=== PATIENT | female | born 1985 | race African-American/Black ===

== ENCOUNTER 2017-11-24 00:35 | Emergency (ER) | payer MEDICAID ==
[~2017-11-24] VITALS: Ht 170.2 cm; Wt 158.8 kg
[2017-11-24 03:00] VITALS: BP 134/86
[2017-11-24] MEDS ORDERED: ONDANSETRON HCL 4 MG/2 ML VIAL IV ONE (03:30)
[2017-11-24] MEDS ORDERED: SODIUM CHLORIDE 0.9% 4,750 ML IV ONE (03:30)
[2017-11-24] MEDS ORDERED: DEXAMETHASONE INJECTION 10 MG in D5W 5% 50 ML IV ONE (03:30)
[2017-11-24] MEDS ORDERED: ceFAZolin 1GM/50ML 50 ML IV ONE (03:30)
[2017-11-24] MEDS ORDERED: DEXAMETHASONE SOD PHOS 10MG/1ML VIAL INJ ONE (03:53)
[2017-11-24] MEDS ORDERED: SODIUM CHLORIDE 0.9% 1,000 ML IV ONE (04:00)
[2017-11-24] MEDS ORDERED: DEXAMETHASONE SOD PHOS 10MG/1ML VIAL INJ IV ONE (04:00)
== END 2017-11-24 05:44 | disposition home or self-care (01) ==
LOC: ER 00:35
DX: J03.90 Acute tonsillitis, unspecified (principal); E86.0 Dehydration
CPT/HCPCS: 96365; 96375; 99284; J0690; J1100; J2405; J7030; J7060